=== PATIENT | female | born 1950 | race Hispanic/Latino ===

== ENCOUNTER 2025-04-02 13:35 | Emergency (ER) | payer OTHER ==
--- OUTSIDE RECORDS SUMMARY | 2025-04-02 13:41 | XMS REPORT | Continuity of Care Document ---
Author Name Unknown Address [address] [facility] [address] [place] [address] Organization [facility] [place] Address [address] [facility] [address] [place] [address] Care Team Providers Care Director Supplier Quality Name Role Phone Tim Trinidad Attending Clinician Unavailable Payers Payer Name Policy Type Policy Number Effective Date Expirati on Date Source [employer] Medicare Replace [id number] [id number] 2019 00:00:00 [facility] MEDICARE NOVITAS MB [id number] 2015 00:00:00 [facility] Problems Condition Name Condition Details Condition Category Status Onset Date Resolution Date Last Treatment Date Treating Clinician Comments Source Memory loss Memory loss Problem [facility] Type 2 diabetes mellitus with diabetic chronic kidney disease Type 2 diabetes mellitus with diabetic chronic kidney disease Problem [facility] 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 a due to type 2 diabetes mellitus Problem [facility] Chronic kidney disease stage 3B (disorder) Chronic kidney disease, stage 3b Problem [facility] Benign essential hypertensi on Benign essential hypertensi on Problem [facility] Mixed hyperlipid emia Mixed hyperlipid emia Problem [facility] Type II diabetes mellitus without complicati on Diabetes mellitus out of control Problem [facility] Uncontroll ed type 2 diabetes mellitus with hyperglyce evon Uncontroll ed type 2 diabetes mellitus with hyperglyce evon Problem [facility] Type 2 diabetes mellitus with other diabetic kidney complicati on Type 2 diabetes mellitus with other diabetic kidney complicati on Problem [facility] Subclinica l hypothyroi dism Subclinica l hypothyroi dism Problem [facility] Type 2 diabetes mellitus with hyperglyce evon Type 2 diabetes mellitus with hyperglyce evon Problem [facility] Diabetic polyneurop athy Secondary diabetes with peripheral neuropathy Problem [facility] Proteinuri a, unspecifie d type Proteinuri a, unspecifie d type Problem [facility] Patient's noncomplia nce with dietary regimen Patient's noncomplia nce with dietary regimen Problem [facility] Noncomplia nce with dietary restrictio n Noncomplia nce with dietary restrictio n Problem [facility] PUD (peptic ulcer disease) PUD (peptic ulcer disease) Problem [facility] 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 Problem [facility] Post herpetic neuralgia Post herpetic neuralgia Problem [facility] Anemia Anemia, unspecifie d type Problem [facility] Vitamin D deficiency Vitamin D deficiency Problem [facility] Social History Social Habit Start Date Stop Date Quantity Comments Source History of Tobacco Use [facility] Sex Assigned At [facility] Smoking Status Start Date Stop Date Source Never Smoker [facility] Medications Ordered Medication Name Filled Medication Name Start Date Stop Date Current Medication? Ordering Clinician Indication Dosage Frequency Signature (SIG) Comments Components Source Vitamin D (Ergocalcif salu) 50 MCG (1999) Vitamin D (Ergocalcif saul) 50 MCG (1999) 2023-06 00:00: 00 No 1{capsu le} QD Vitamin D (Ergocalci ferol) 50 MCG (1999) Gabapentin 400 MG Gabapentin 400 MG 2023-06 0-16 00:00: 00 No QD Gabapentin 400 MG Pioglitazon e HCl 45 MG Pioglitazon e HCl 45 MG No 1{table t} QD Pioglitazo ne HCl 45 MG amLODIPine Besylate 10 MG amLODIPine Besylate 10 MG No 1{table t} QD amLODIPine Besylate 10 MG Berberine Chloride Berberine Chloride No 1{table ts} BID Berberine Chloride Lisinopril 40 MG Lisinopril 40 MG No 1{table t} QD Lisinopril 40 MG glipiZIDE ER 10 MG glipiZIDE ER 10 MG No 1{table t} BID glipiZIDE ER 10 MG Pravastatin Sodium 10 MG Pravastatin Sodium 10 MG No 1{table t} QD Pravastati n Sodium 10 MG Aspirin 81 81 MG Aspirin 81 81 MG No 1{table t} QD Aspirin 81 81 MG Dorzolamide HCl 2 % Dorzolamide HCl 2 % No Dorzolamid e HCl 2 % Brimonidine Tartrate-Ti molol 0.2-0.5 % Brimonidine Tartrate-Ti molol 0.2-0.5 % No Brimonidin e Tartrate-T imolol 0.2-0.5 % hydroCHLORO thiazide 12.5 MG hydroCHLORO thiazide 12.5 MG No 1{table t_in_th e_morni ng} QD hydroCHLOR Othiazide 12.5 MG traMADol HCl 50 MG traMADol HCl 50 MG No 1{table t_as_ne eded} QD traMADol HCl 50 MG Vital Signs Vital Name Observation Time Observation Value Comments S ource height 2025-02-10 15:20:00 60 [in_i] Commo n [facility] weight 2025-02-10 15:20:00 158 [lb_av] Comm on [facility] bmi 2025-02-10 15:20:00 30.85 kg/m2 Comm on [facility] height 2025-01-05 14:15:00 60 [in_i] Commo n [facility] weight 2025-01-05 14:15:00 158.7 [lb_av] Co mmon [facility] temperature 2025-01-05 14:15:00 97.2 [degF] Com [facility] bmi 2025-01-05 14:15:00 30.99 kg/m2 Comm on [facility] oximetry 2025-01-05 14:15:00 99 % Commo n [facility] respiratory rate 2025-01-05 14:15:00 17 /min Common [facility] blood pressure systolic 2025-01-05 14:15:00 138 mm[Hg] [facility] blood pressure diastolic 2025-01-05 14:15:00 70 mm[Hg] Common [facility] height 2025-01-05 14:30:00 60 [in_i] Commo n [facility] weight 2025-01-05 14:30:00 158.7 [lb_av] Co [facility] temperature 2025-01-05 14:30:00 97.2 [degF] Com [facility] bmi 2025-01-05 14:30:00 30.99 kg/m2 Comm on [facility] oximetry 2025-01-05 14:30:00 100 % Commo n [facility] blood pressure systolic 2025-01-05 14:30:00 138 mm[Hg] Common [facility] blood pressure diastolic 2025-01-05 14:30:00 70 mm[Hg] Common [facility] height 2024-06-17 10:30:00 60 [in_i] Commo n [facility] weight 2024-06-17 10:30:00 162.2 [lb_av] Co [facility] temperature 2024-06-17 10:30:00 96.4 [degF] Com [facility] bmi 2024-06-17 10:30:00 31.67 kg/m2 Comm on [facility] oximetry 2024-06-17 10:30:00 98 % Commo n [facility] respiratory rate 2024-06-17 10:30:00 17 /min Common [facility] blood pressure systolic 2024-06-17 10:30:00 134 mm[Hg] [facility] blood pressure diastolic 2024-06-17 10:30:00 62 mm[Hg] [facility] height 2024-04-02 10:40:00 60 [in_i] Commo n [facility] weight 2024-04-02 10:40:00 150 [lb_av] Comm on [facility] temperature 2024-04-02 10:40:00 98.0 [degF] Com [facility] bmi 2024-04-02 10:40:00 29.29 kg/m2 Comm on [facility] oximetry 2024-04-02 10:40:00 99 % Commo n [facility] respiratory rate 2024-04-02 10:40:00 18 /min Common [facility] blood pressure systolic 2024-04-02 10:40:00 138 mm[Hg] [facility] blood pressure diastolic 2024-04-02 10:40:00 65 mm[Hg] Common [facility] height 2024-03-11 10:20:00 60 [in_i] Commo n [facility] weight 2024-03-11 10:20:00 146 [lb_av] Comm on [facility] temperature 2024-03-11 10:20:00 97.2 [degF] Com mon [facility] bmi 2024-03-11 10:20:00 28.51 kg/m2 Comm on [facility] oximetry 2024-03-11 10:20:00 98 % Commo n [facility] blood pressure systolic 2024-03-11 10:20:00 132 mm[Hg] Common [facility] blood pressure diastolic 2024-03-11 10:20:00 76 mm[Hg] Common [facility] height 2024-03-11 10:20:00 60 [in_i] Commo n [facility] weight 2024-03-11 10:20:00 146 [lb_av] Comm on [facility] temperature 2024-03-11 10:20:00 97.2 [degF] Com mon [facility] bmi 2024-03-11 10:20:00 28.51 kg/m2 Comm on [facility] oximetry 2024-03-11 10:20:00 98 % Commo n [facility] blood pressure systolic 2024-03-11 10:20:00 132 mm[Hg] Common [facility] blood pressure diastolic 2024-03-11 10:20:00 76 mm[Hg] Common [facility] height 2024-01-17 10:20:00 60 [in_i] Commo n [facility] weight 2024-01-17 10:20:00 152.0 [lb_av] Co mmon [facility] temperature 2024-01-17 10:20:00 97.3 [degF] Com mon [facility] bmi 2024-01-17 10:20:00 29.68 kg/m2 Comm on [facility] oximetry 2024-01-17 10:20:00 100 % Commo n [facility] respiratory rate 2024-01-17 10:20:00 17 /min Common [facility] blood pressure systolic 2024-01-17 10:20:00 133 mm[Hg] Common [facility] blood pressure diastolic 2024-01-17 10:20:00 62 mm[Hg] Common [facility] height 2023-12-07 11:20:00 60 [in_i] Commo n [facility] weight 2023-12-07 11:20:00 148.0 [lb_av] Co mmon [facility] temperature 2023-12-07 11:20:00 97.6 [degF] Com mon [facility] bmi 2023-12-07 11:20:00 28.9 kg/m2 Commo n [facility] oximetry 2023-12-07 11:20:00 98 % Commo n [facility] respiratory rate 2023-12-07 11:20:00 18 /min Common [facility] blood pressure systolic 2023-12-07 11:20:00 126 mm[Hg] Common [facility] blood pressure diastolic 2023-12-07 11:20:00 67 mm[Hg] [facility] height 2023-12-07 11:20:00 60 [in_i] Commo n [facility] weight 2023-12-07 11:20:00 148.0 [lb_av] Co mmon [facility] temperature 2023-12-07 11:20:00 97.6 [degF] Com mon [facility] bmi 2023-12-07 11:20:00 28.9 kg/m2 Commo n [facility] oximetry 2023-12-07 11:20:00 98 % Commo n [facility] respiratory rate 2023-12-07 11:20:00 18 /min Common [facility] blood pressure systolic 2023-12-07 11:20:00 126 mm[Hg] Common [facility] blood pressure diastolic 2023-12-07 11:20:00 67 mm[Hg] [facility] height 2023-09-03 10:00:00 60 [in_i] Commo n [facility] weight 2023-09-03 10:00:00 148.0 [facility]lb_av] [facility]-03 10:00:00 97.9 [degF] Com [facility] bmi 2023-09-03 10:00:00 28.9 kg/m2 Commo n [facility] oximetry 2023-09-03 10:00:00 99 % Commo n [facility] respiratory rate 2023-09-03 10:00:00 18 /min Common [facility] blood pressure systolic 2023-09-03 10:00:00 122 mm[Hg] [facility] blood pressure diastolic 2023-09-03 10:00:00 77 mm[Hg] Common [facility] height 2023-06-04 14:20:00 60 [in_i] Commo n [facility] weight 2023-06-04 14:20:00 141.6 [lb_av] Co [facility] temperature 2023-06-04 14:20:00 97.4 [degF] Com [facility] bmi 2023-06-04 14:20:00 27.65 kg/m2 Comm on [facility] oximetry 2023-06-04 14:20:00 97 % Commo n [facility] blood pressure systolic 2023-06-04 14:20:00 130 mm[Hg] [facility] blood pressure diastolic 2023-06-04 14:20:00 78 mm[Hg] Common [facility] height 2023-03-06 11:00:00 60 [in_i] Commo n [facility] weight 2023-03-06 11:00:00 144.0 [lb_av] Co mmon [facility] temperature 2023-03-06 11:00:00 97.2 [degF] Com [facility] bmi 2023-03-06 11:00:00 28.12 kg/m2 Comm on [facility] oximetry 2023-03-06 11:00:00 97 % Commo n [facility] respiratory rate 2023-03-06 11:00:00 18 /min Common [facility] blood pressure systolic 2023-03-06 11:00:00 120 mm[Hg] Common [facility] blood pressure diastolic 2023-03-06 11:00:00 59 mm[Hg] [facility] height 2022-11-30 11:00:00 60 [in_i] Commo n [facility] weight 2022-11-30 11:00:00 142.8 [lb_av] Co [facility] temperature 2022-11-30 11:00:00 97.9 [degF] Com [facility] bmi 2022-11-30 11:00:00 27.89 kg/m2 Comm on [facility] oximetry 2022-11-30 11:00:00 94 % Commo n [facility] respiratory rate 2022-11-30 11:00:00 16 /min [facility] blood pressure systolic 2022-11-30 11:00:00 130 mm[Hg] [facility] blood pressure diastolic 2022-11-30 11:00:00 71 mm[Hg] Common [facility] height 2022-11-30 11:30:00 60 [in_i] Commo n [facility] weight 2022-11-30 11:30:00 142.8 [lb_av] Co mmon [facility] temperature 2022-11-30 11:30:00 97.9 [degF] Com [facility] bmi 2022-11-30 11:30:00 27.89 kg/m2 Comm on [facility] oximetry 2022-11-30 11:30:00 96 % Commo n [facility] respiratory rate 2022-11-30 11:30:00 16 /min [facility] blood pressure systolic 2022-11-30 11:30:00 130 mm[Hg] Common [facility] blood pressure diastolic 2022-11-30 11:30:00 71 mm[Hg] [facility] height 2022-10-16 11:10:00 60 [in_i] Commo n [facility] weight 2022-10-16 11:10:00 143.9 [lb_av] Co mmon [facility] temperature 2022-10-16 11:10:00 97.7 [degF] Com mon [facility] bmi 2022-10-16 11:10:00 28.1 kg/m2 Commo n [facility] oximetry 2022-10-16 11:10:00 97 % Commo n [facility] respiratory rate 2022-10-16 11:10:00 18 /min [facility] blood pressure systolic 2022-10-16 11:10:00 137 mm[Hg] [facility] blood pressure diastolic 2022-10-16 11:10:00 65 mm[Hg] [facility] height 2022-09-14 11:10:00 60 [in_i] Commo n [facility] weight 2022-09-14 11:10:00 143.1 [lb_av] Co mmon [facility] temperature 2022-09-14 11:10:00 96.7 [degF] Com mon [facility] bmi 2022-09-14 11:10:00 27.94 kg/m2 Comm on [facility] oximetry 2022-09-14 11:10:00 95 % Commo n [facility] respiratory rate 2022-09-14 11:10:00 16 /min Common [facility] blood pressure systolic 2022-09-14 11:10:00 136 mm[Hg] Common [facility] blood pressure diastolic 2022-09-14 11:10:00 76 mm[Hg] Common [facility] height 2022-08-14 11:30:00 60 [in_i] Commo n [facility] weight 2022-08-14 11:30:00 146 [lb_av] Comm on [facility] temperature 2022-08-14 11:30:00 97.3 [degF] Com [facility] bmi 2022-08-14 11:30:00 28.51 kg/m2 Comm on [facility] oximetry 2022-08-14 11:30:00 97 % Commo n [facility] respiratory rate 2022-08-14 11:30:00 16 /min Common [facility] blood pressure systolic 2022-08-14 11:30:00 142 mm[Hg] Common [facility] blood pressure diastolic 2022-08-14 11:30:00 72 mm[Hg] Common [facility] height 2022-05-16 14:50:00 60 [in_i] Commo n [facility] weight 2022-05-16 14:50:00 145.9 [lb_av] Co mmon [facility] temperature 2022-05-16 14:50:00 97.3 [degF] Com [facility] bmi 2022-05-16 14:50:00 28.49 kg/m2 Comm on [facility] oximetry 2022-05-16 14:50:00 99 % Commo n [facility] respiratory rate 2022-05-16 14:50:00 18 /min Common [facility] blood pressure systolic 2022-05-16 14:50:00 138 mm[Hg] Common [facility] blood pressure diastolic 2022-05-16 14:50:00 64 mm[Hg] Common [facility] height 2022-02-14 15:50:00 60 [in_i] Commo n [facility] weight 2022-02-14 15:50:00 147.2 [lb_av] Co mmon [facility] temperature 2022-02-14 15:50:00 97.4 [degF] Com mon [facility] bmi 2022-02-14 15:50:00 28.74 kg/m2 Comm on [facility] oximetry 2022-02-14 15:50:00 99 % Commo n [facility] respiratory rate 2022-02-14 15:50:00 18 /min Common [facility] blood pressure systolic 2022-02-14 15:50:00 127 mm[Hg] [facility] blood pressure diastolic 2022-02-14 15:50:00 77 mm[Hg] [facility] height 2021-11-24 10:00:00 60 [in_i] Commo n [facility] weight 2021-11-24 10:00:00 142.3 [lb_av] Co [facility] temperature 2021-11-24 10:00:00 97.5 [degF] Com [facility] bmi 2021-11-24 10:00:00 27.79 kg/m2 Comm on [facility] oximetry 2021-11-24 10:00:00 97 % Commo n [facility] respiratory rate 2021-11-24 10:00:00 17 /min [facility] blood pressure systolic 2021-11-24 10:00:00 138 mm[Hg] Common [facility] blood pressure diastolic 2021-11-24 10:00:00 77 mm[Hg] [facility] height 2021-10-28 08:50:00 60 [in_i] Commo n [facility] weight 2021-10-28 08:50:00 145.4 [lb_av] Co [facility] temperature 2021-10-28 08:50:00 96.8 [degF] Com [facility] bmi 2021-10-28 08:50:00 28.39 kg/m2 Comm on [facility] oximetry 2021-10-28 08:50:00 97 % Commo n [facility] respiratory rate 2021-10-28 08:50:00 17 /min [facility] blood pressure systolic 2021-10-28 08:50:00 135 mm[Hg] [facility] blood pressure diastolic 2021-10-28 08:50:00 72 mm[Hg] [facility] height 2021-10-28 08:20:00 60 [in_i] Commo n [facility] weight 2021-10-28 08:20:00 145.4 [lb_av] Co [facility] temperature 2021-10-28 08:20:00 96.8 [degF] Com [facility] bmi 2021-10-28 08:20:00 28.39 kg/m2 Comm on [facility] oximetry 2021-10-28 08:20:00 97 % Commo n [facility] respiratory rate 2021-10-28 08:20:00 17 /min Common [facility] blood pressure systolic 2021-10-28 08:20:00 135 mm[Hg] [facility] blood pressure diastolic 2021-10-28 08:20:00 72 mm[Hg] Common [facility] height 2021-05-10 15:00:00 60 [in_i] Commo n [facility] weight 2021-05-10 15:00:00 150.4 [lb_av] Co [facility] temperature 2021-05-10 15:00:00 97.3 [degF] Com [facility] bmi 2021-05-10 15:00:00 29.37 kg/m2 Comm on [facility] oximetry 2021-05-10 15:00:00 100 % Commo n [facility] respiratory rate 2021-05-10 15:00:00 18 /min [facility] blood pressure systolic 2021-05-10 15:00:00 133 mm[Hg] [facility] blood pressure diastolic 2021-05-10 15:00:00 76 mm[Hg] [facility] Encounters Start Date/Time End Date/Time Encounter Type Admission Type Attending Clinicians Care Facility Care Department Encounter ID Source 2024-04-02 09:16:00 Outpatient [place], Tmi STLMLC ST[facility]ML[facility] [id number] [facility] 2023-12-06 09:40:00 Outpatient [place], Tim STLMLC ST[facility] [id number] [facility] 2023-10-31 15:35:00 Outpatient [place], Tim STLMLC ST[facility]MLC [id number] [facility] 2022-12-25 09:44:01 Outpatient [place], Tim STLMLC STLMLC [id number] [facility] 2022-11-20 14:22:00 Outpatient [place], Tim STLMLC STLMLC [id number] [facility] 2022-05-25 16:30:01 Outpatient Triniadd, Tim STLMLC STLMLC [id number] [facility] 2022-05-15 15:53:01 Outpatient [place]idad, Tim STLMLC STLMLC [id number] [facility] 2021-07-13 13:34:14 Outpatient [place]idad, Tim STLMLC STLMLC [id number] [facility] 2021-07-13 13:20:34 Outpatient [place], Tim STLMLC STLMLC [id number] [facility] 2021-07-13 13:19:52 Outpatient [place]idad, Tim STLMLC STLMLC [id number] [facility] 2021-07-13 12:26:48 Outpatient [place]idad, Tim STLMLC STLMLC [id number] [facility] 2021-07-13 12:25:23 Outpatient [place]idad, Tim STLMLC STLMLC [id number] [facility] 2021-07-13 11:22:54 Outpatient [place]idad, Tim STLMLC STLMLC [id number] [facility] 2021-07-13 11:22:43 Outpatient [place], Tim STLMLC STLMLC [id number] [facility] 2021-07-13 11:20:54 Outpatient [place]idad, Tim STLMLC STLMLC [id number] [facility] 2021-07-13 11:17:23 Outpatient [place]idad, Tim STLMLC STLMLC [id number] [facility] 2021-07-13 11:07:18 Outpatient [place], Tim STLMLC STLMLC [id number] [facility] 2025-02-20 00:00:00 2025-02-20 00:00:00 (TEL) STLMLC STLMLC [id number] [facility] 2025-02-20 00:00:00 2025-02-20 00:00:00 (TEL) STLMLC STLMLC [id number] [facility] 2025-02-13 00:00:00 2025-02-13 00:00:00 (TEL) STLMLC STLMLC [id number] [facility] 2025-02-10 00:00:00 2025-02-10 00:00:00 (TEL) STLMLC STLMLC [id number] [facility] 2025-02-10 00:00:00 2025-02-10 00:00:00 OFFICE VISIT ESTAB PT LEVEL 4 STLMLC STLMLC [id number] [facility] 2025-01-05 00:00:00 2025-01-05 00:00:00 OFFICE VISIT ESTAB PT LEVEL 4 STLMLC STLMLC [id number] [facility] 2025-01-05 00:00:00 2025-01-05 00:00:00 SUB ANNUAL [facility] WELLNESS VISIT STLMLC STLMLC [id number] [facility] 2024-11-27 00:00:00 2024-11-27 00:00:00 (TEL) STLMLC STLMLC [id number] [facility] 2024-06-19 00:00:00 2024-06-19 00:00:00 (TEL) STLMLC STLMLC [id number] [facility] 2024-06-17 00:00:00 2024-06-17 00:00:00 OFFICE VISIT ESTAB PT LEVEL 4 STLMLC STLMLC [id number] [facility] 2024-04-02 00:00:00 2024-04-02 00:00:00 OFFICE VISIT ESTAB PT LEVEL 3 STLMLC STLMLC [id number] [facility] 2024-04-01 00:00:00 2024-04-01 00:00:00 (TEL) STLMLC STLMLC [id number] [facility] 2024-03-11 00:00:00 2024-03-11 00:00:00 OFFICE VISIT ESTAB PT LEVEL 4 STLMLC STLMLC [id number] [facility] 2024-01-17 00:00:00 2024-01-17 00:00:00 OFFICE VISIT ESTAB PT LEVEL 3 STLMLC STLMLC [id number] [facility] 2024-01-16 00:00:00 2024-01-16 00:00:00 (TEL) STLMLC STLMLC [id number] [facility] 2023-12-07 00:00:00 2023-12-07 00:00:00 OFFICE VISIT ESTAB PT LEVEL 4 STLMLC STLMLC [id number] [facility] 2023-12-07 00:00:00 2023-12-07 00:00:00 (TEL) STLMLC STLMLC [id number] [facility] 2023-12-07 00:00:00 2023-12-07 00:00:00 SUB ANNUAL [facility] WELLNESS VISIT STLMLC STLMLC [id number] [facility] 2023-10-31 00:00:00 2023-10-31 00:00:00 (TEL) STLMLC STLMLC [id number] [facility] 2023-09-11 00:00:00 2023-09-11 00:00:00 (TEL) STLMLC STLMLC [id number] [facility] 2023-09-03 00:00:00 2023-09-03 00:00:00 OFFICE VISIT ESTAB PT LEVEL 4 STLMLC STLMLC [id number] [facility] 2023-06-04 00:00:00 2023-06-04 00:00:00 OFFICE VISIT ESTAB PT LEVEL 4 STLMLC STLMLC [id number] [facility] 2023-03-06 00:00:00 2023-03-06 00:00:00 OFFICE VISIT ESTAB PT LEVEL 4 STLMLC STLMLC [id number] [facility] 2022-11-30 00:00:00 2022-11-30 00:00:00 OFFICE VISIT ESTAB PT LEVEL 4 STLMLC STLMLC [id number] [facility] 2022-11-30 00:00:00 2022-11-30 00:00:00 SUB ANNUAL [facility] WELLNESS VISIT STLMLC STLMLC [id number] [facility] 2022-11-30 00:00:00 2022-11-30 00:00:00 (TEL) STLMLC STLMLC [id number] [facility] 2022-11-17 00:00:00 2022-11-17 00:00:00 (TEL) STLMLC STLMLC [id number] [facility] 2022-10-16 00:00:00 2022-10-16 00:00:00 OFFICE VISIT ESTAB PT LEVEL 4 STLMLC STLMLC [id number] [facility] 2022-09-14 00:00:00 2022-09-14 00:00:00 OFFICE VISIT ESTAB PT LEVEL 4 STLMLC STLMLC [id number] [facility] 2022-09-14 00:00:00 2022-09-14 00:00:00 (TEL) STLMLC STLMLC [id number] [facility] 2022-08-14 00:00:00 2022-08-14 00:00:00 OFFICE VISIT ESTAB PT LEVEL 4 STLMLC STLMLC [id number] [facility] 2022-05-16 00:00:00 2022-05-16 00:00:00 OFFICE VISIT ESTAB PT LEVEL 4 STLMLC STLMLC [id number] [facility] 2022-02-14 00:00:00 2022-02-14 00:00:00 OFFICE VISIT ESTAB PT LEVEL 4 STLMLC STLMLC [id number] [facility] 2021-11-24 00:00:00 2021-11-24 00:00:00 OFFICE VISIT ESTAB PT LEVEL 4 STLMLC STLMLC [id number] [facility] 2021-10-28 00:00:00 2021-10-28 00:00:00 OFFICE VISIT ESTAB PT LEVEL 4 STLMLC STLMLC [id number] [facility] 2021-10-28 00:00:00 2021-10-28 00:00:00 SUB ANNUAL [facility] WELLNESS VISIT STLMLC STLMLC [id number] [facility] 2021-05-10 00:00:00 2021-05-10 00:00:00 OFFICE VISIT ESTAB PT LEVEL 4 STLMLC STLMLC [id number] [facility] 2021-01-18 00:00:00 2021-01-18 00:00:00 Outpatient STLMLC STLMLC [id number] [facility] 2020-12-14 00:00:00 2020-12-14 00:00:00 Outpatient STLMLC STLMLC [id number] [facility] 2020-11-16 00:00:00 2020-11-16 00:00:00 Outpatient STLMLC STLMLC [id number] [facility] 2020-10-18 00:00:00 2020-10-18 00:00:00 Outpatient STLMLC STLMLC [id number] [facility] 2020-07-20 00:00:00 2020-07-20 00:00:00 Outpatient STLMLC STLMLC [id number] [facility] 2020-07-20 00:00:00 2020-07-20 00:00:00 Outpatient STLMLC STLMLC [id number] [facility] 2020-04-20 00:00:00 2020-04-20 00:00:00 Outpatient STLMLC STLMLC [id number] [facility] 2020-01-12 11:15:00 2020-01-12 11:15:[address] [facility] [id number] [facility] 2020-01-07 14:00:00 2020-01-07 14:00:[address] [facility] [id number] [facility] 2019-12-03 21:39:00 2019-12-03 21:39:[address] [facility] [id number] [facility] 2019-11-24 10:15:00 2019-11-24 10:15:[address] [facility] [id number] [facility] 2019-10-21 16:53:00 2019-10-21 16:53:[address] [facility] [id number] [facility] 2019-09-08 11:15:00 2019-09-08 11:15:[address] [facility] [id number] [facility] 2019-07-30 11:00:00 2019-07-30 11:00:[address] [facility] [id number] [facility] 2019-07-22 16:58:00 2019-07-22 16:58:[address] [facility] [id number] [facility] 2019-05-01 10:30:00 2019-05-01 10:30:[address] [facility] [id number] [facility] 2019-04-16 09:20:00 2019-04-16 09:20:[address] [facility] [facility] Medicine [id number] [facility] 2018-07-25 09:00:00 2018-07-25 09:00:[address] [facility] [id number] [facility] 2018-07-24 11:44:00 2018-07-24 11:44:[address] [facility] [facility] Medicine [id number] [facility] 2018-02-06 10:00:00 2018-02-06 10:00:[address] [facility] [facility] Medicine [id number] [facility] 2017-11-30 10:00:00 2017-11-30 10:00:[address] [facility] [id number] [facility] Results Test Description Test Time Test Comments Results Result Co mments Source COMPREHENSIVE METABOLIC [id number] 00:00:00* Test Item Value Reference Range Interpretation Comme nts NUCLEATED RBCS (test code = 42524-7) 0.0 /100 WBC'S See_Comment [Automated message] The system which generated this result transmitted reference range: 0.0 /100 WBC'S. The reference range was not used to interpret this result as normal/abnormal. ABSOLUTE EOSINOPHILS (test code = 39498-8) 0.37 K/UL See_Comment [Automated message] The system which generated this result transmitted reference range: 0.00-0.50 K/UL. The reference range was not used to interpret this result as normal/abnormal. ABSOLUTE LYMPHOCYTES (test code = 68190-0) 1.02 K/UL See_Comment [Automated message] The system which generated this result transmitted reference range: 1.00-4.00 K/UL. The reference range was not used to interpret this result as normal/abnormal. ABSOLUTE MONOCYTES (test code = 36764-0) 0.45 K/UL See_Comment [Automated message] The system which generated this result transmitted reference range: 0.20-1.00 K/UL. The reference range was not used to interpret this result as normal/abnormal. ABSOLUTE NEUTROPHILS (test code = 19329-4) 3.70 K/UL See_Comment [Automated message] The system which generated this result transmitted reference range: 1.50-7.50 K/UL. The reference range was not used to interpret this result as normal/abnormal. BASOPHILS (test code = 59796-3) 0.7 % EOSINOPHILS (test code = 00488-5) 6.6 % HEMATOCRIT (test code = 25980-1) 25.0 % See_Comment L [Automated messa ge] The system which generated this result transmitted reference range: 34.0-45.0 %. The reference range was not used to interpret this result as normal/abnormal. HEMOGLOBIN (test code = 718-7) 8.3 G/DL See_Comment L [Automated messa ge] The system which generated this result transmitted reference range: 11.5-15.5 G/DL. The reference range was not used to interpret this result as normal/abnormal. LYMPHOCYTES (test code = 21988-1) 18.1 % MCH (test code = 95337-6) 33.1 PG See_Comment H [Automated messa ge] The system which generated this result transmitted reference range: 25.0-33.0 PG. The reference range was not used to interpret this result as normal/abnormal. MCHC (test code = 10286-8) 33.2 G/DL See_Comment [Automated messa ge] The system which generated this result transmitted reference range: 31.0-36.0 G/DL. The reference range was not used to interpret this result as normal/abnormal. MCV (test code = 30864-7) 99.6 fL See_Comment H [Automated messa ge] The system which generated this result transmitted reference range: 80.0-99.0 fL. The reference range was not used to interpret this result as normal/abnormal. MONOCYTES (test code = 47265-1) 8.0 % NEUTROPHILS (test code = 50307-6) 65.9 % PLATELET COUNT (test code = 00757-9) 310 K/UL See_Comment [Automated messa ge] The system which generated this result transmitted reference range: 130-400 K/UL. The reference range was not used to interpret this result as normal/abnormal. RBC (test code = 69759-4) 2.51 M/UL See_Comment L [Automated messa ge] The system which generated this result transmitted reference range: 3.80-5.40 M/UL. The reference range was not used to interpret this result as normal/abnormal. RDW (test code = 45094-8) 17.2 % See_Comment H [Automated messa ge] The system which generated this result transmitted reference range: 11.5-15.0 %. The reference range was not used to interpret this result as normal/abnormal. WBC (test code = 33711-4) 5.6 K/UL See_Comment [Automated messa ge] The system which generated this result transmitted reference range: 3.5-11.0 K/UL. The reference range was not used to interpret this result as normal/abnormal. HEMOGLOBIN A1c (test code = 4548-4) 7.3 % See_Comment H [Automated messa ge] The system which generated this result transmitted reference range: 4.2-5.6 %. The reference range was not used to interpret this result as normal/abnormal. FREE T4 (THYROXINE) (test code = 3024-7) 1.14 NG/DL See_Comment [Automated message] The system which generated this result transmitted reference range: 0.80-1.90 NG/DL. The reference range was not used to interpret this result as normal/abnormal. TSH REFLEX TO FREE T4 (test code = 62924-1) 3.030 UIU/ML See_Comment [Automated message] The system which generated this result transmitted reference range: 0.400-4.100 UIU/ML. The reference range was not used to interpret this result as normal/abnormal. CALC LDL CHOL (test code = 63420-9) 71 MG/DL See_Comment [Automated messa ge] The system which generated this result transmitted reference range: <100 MG/DL. The reference range was not used to interpret this result as normal/abnormal. CHOLESTEROL (test code = 2093-3) 125 MG/DL See_Comment [Automated messa ge] The system which generated this result transmitted reference range: <200 MG/DL. The reference range was not used to interpret this result as normal/abnormal. HDL CHOLESTEROL (test code = 2085-9) 28 MG/DL See_Comment L [Automated messa ge] The system which generated this result transmitted reference range: >39 MG/DL. The reference range was not used to interpret this result as normal/abnormal. RISK RATIO LDL/HDL (test code = 58898-6) 2.54 RATIO See_Comment [Automated message] The system which generated this result transmitted reference range: <3.22 RATIO. The reference range was not used to interpret this result as normal/abnormal. TRIGLYCERIDES (test code = 2571-8) 192 MG/DL See_Comment H [Automated messa ge] The system which generated this result transmitted reference range: <150 MG/DL. The reference range was not used to interpret this result as normal/abnormal. ALBUMIN, URINE, RANDOM (test code = 98478-9) 265.6 MG/DL NOT ESTAB MG/DL CALC ALBUMIN/CREAT, RND (test code = 79747-0) 2069 MG/G See_Comment H [Automated messa ge] The system which generated this result transmitted reference range: <30 MG/G. The reference range was not used to interpret this result as normal/abnormal. CREATININE, URINE, CONC. (test code = 2161-8) 128.4 MG/DL NOT ESTAB MG/DL ALBUMIN (test code = 1751-7) 3.7 G/DL See_Comment [Automated messa ge] The system which generated this result transmitted reference range: 3.5-5.2 G/DL. The reference range was not used to interpret this result as normal/abnormal. ALKALINE PHOSPHATASE (test code = 6768-6) 69 U/L See_Comment [Automated message] The system which generated this result transmitted reference range: 40-142 U/L. The reference range was not used to interpret this result as normal/abnormal. BILIRUBIN, TOTAL (test code = 1975-2) <0.2 MG/DL See_Comment [Automated messa ge] The system which generated this result transmitted reference range: <=1.2 MG/DL. The reference range was not used to interpret this result as normal/abnormal. BUN (test code = 3094-0) 25 MG/DL See_Comment H [Automated messa ge] The system which generated this result transmitted reference range: 8-23 MG/DL. The reference range was not used to interpret this result as normal/abnormal. CALCIUM (test code = 23367-8) 9.4 MG/DL See_Comment [Automated messa ge] The system which generated this result transmitted reference range: 8.5-10.5 MG/DL. The reference range was not used to interpret this result as normal/abnormal. CALC A/G RATIO (test code = 1759-0) 1.2 RATIO See_Comment [Automated messa ge] The system which generated this result transmitted reference range: 1.0-2.6 RATIO. The reference range was not used to interpret this result as normal/abnormal. CALC BUN/CREAT (test code = 3097-3) 18 RATIO See_Comment [Automated messa ge] The system which generated this result transmitted reference range: 6-28 RATIO. The reference range was not used to interpret this result as normal/abnormal. CALC GLOBULIN (test code = 57226-7) 3.0 G/DL See_Comment [Automated messa ge] The system which generated this result transmitted reference range: 1.9-3.7 G/DL. The reference range was not used to interpret this result as normal/abnormal. CARBON DIOXIDE (test code = 1963-8) 22 MEQ/L See_Comment [Automated messa ge] The system which generated this result transmitted reference range: 19-31 MEQ/L. The reference range was not used to interpret this result as normal/abnormal. CHLORIDE (test code = 2075-0) 109 MEQ/L See_Comment H [Automated messa ge] The system which generated this result transmitted reference range: 95-107 MEQ/L. The reference range was not used to interpret this result as normal/abnormal. CREATININE (test code = 2160-0) 1.40 MG/DL See_Comment H [Automated messa ge] The system which generated this result transmitted reference range: 0.60-1.30 MG/DL. The reference range was not used to interpret this result as normal/abnormal. eGFR (2020 CKD-EPI) (test code = 45835-6) 40 ML/MIN/1.73 See_Comment L [Automated message] The system which generated this result transmitted reference range: >60 ML/MIN/1.73. The reference range was not used to interpret this result as normal/abnormal. GLUCOSE (test code = 1558-6) 182 MG/DL See_Comment H [Automated messa ge] The system which generated this result transmitted reference range: 70-99 MG/DL. The reference range was not used to interpret this result as normal/abnormal. POTASSIUM (test code = 2823-3) 5.0 MEQ/L See_Comment [Automated messa ge] The system which generated this result transmitted reference range: 3.5-5.4 MEQ/L. The reference range was not used to interpret this result as normal/abnormal. PROTEIN, TOTAL (test code = 2885-2) 6.7 G/DL See_Comment [Automated messa ge] The system which generated this result transmitted reference range: 6.1-8.3 G/DL. The reference range was not used to interpret this result as normal/abnormal. AST (test code = 1920-8) 17 U/L See_Comment [Automated messa ge] The system which generated this result transmitted reference range: 9-40 U/L. The reference range was not used to interpret this result as normal/abnormal. ALT (test code = 1742-6) 14 U/L See_Comment [Automated messa ge] The system which generated this result transmitted reference range: 5-40 U/L. The reference range was not used to interpret this result as normal/abnormal. SODIUM (test code = 2951-2) 140 MEQ/L See_Comment [Automated messa ge] The system which generated this result transmitted reference range: 133-146 MEQ/L. The reference range was not used to interpret this result as normal/abnormal. CBC W/AUTO [id number] 00:00:00* Test Item Value Reference Range Interpretation Comme nts NUCLEATED RBCS (test code = 05906-1) 0.0 /100 WBC'S See_Comment [Automated messa ge] The system which generated this result transmitted reference range: 0.0 /100 WBC'S. The reference range was not used to interpret this result as normal/abnormal. ABSOLUTE EOSINOPHILS (test code = 26234-6) 0.17 K/UL See_Comment [Automated messa ge] The system which generated this result transmitted reference range: 0.00-0.50 K/UL. The reference range was not used to interpret this result as normal/abnormal. ABSOLUTE LYMPHOCYTES (test code = 46914-1) 1.30 K/UL See_Comment [Automated messa ge] The system which generated this result transmitted reference range: 1.00-4.00 K/UL. The reference range was not used to interpret this result as normal/abnormal. ABSOLUTE MONOCYTES (test code = 22679-1) 0.40 K/UL See_Comment [Automated messa ge] The system which generated this result transmitted reference range: 0.20-1.00 K/UL. The reference range was not used to interpret this result as normal/abnormal. ABSOLUTE NEUTROPHILS (test code = 68294-6) 2.28 K/UL See_Comment [Automated messa ge] The system which generated this result transmitted reference range: 1.50-7.50 K/UL. The reference range was not used to interpret this result as normal/abnormal. BASOPHILS (test code = 26451-1) 1.0 % EOSINOPHILS (test code = 16322-5) 4.0 % HEMATOCRIT (test code = 50300-7) 29.7 % See_Comment L [Automated messa ge] The system which generated this result transmitted reference range: 34.0-45.0 %. The reference range was not used to interpret this result as normal/abnormal. HEMOGLOBIN (test code = 718-7) 9.7 G/DL See_Comment L [Automated messa ge] The system which generated this result transmitted reference range: 11.5-15.5 G/DL. The reference range was not used to interpret this result as normal/abnormal. LYMPHOCYTES (test code = 88826-9) 30.9 % MCH (test code = 37217-6) 29.3 PG See_Comment [Automated messa ge] The system which generated this result transmitted reference range: 25.0-33.0 PG. The reference range was not used to interpret this result as normal/abnormal. MCHC (test code = 27016-3) 32.7 G/DL See_Comment [Automated messa ge] The system which generated this result transmitted reference range: 31.0-36.0 G/DL. The reference range was not used to interpret this result as normal/abnormal. MCV (test code = 69694-3) 89.7 fL See_Comment [Automated messa ge] The system which generated this result transmitted reference range: 80.0-99.0 fL. The reference range was not used to interpret this result as normal/abnormal. MONOCYTES (test code = 01900-5) 9.5 % NEUTROPHILS (test code = 45360-1) 54.1 % PLATELET COUNT (test code = 20021-4) 263 K/UL See_Comment [Automated messa ge] The system which generated this result transmitted reference range: 130-400 K/UL. The reference range was not used to interpret this result as normal/abnormal. RBC (test code = 51859-7) 3.31 M/UL See_Comment L [Automated messa ge] The system which generated this result transmitted reference range: 3.80-5.40 M/UL. The reference range was not used to interpret this result as normal/abnormal. RDW (test code = 81822-4) 14.2 % See_Comment [Automated messa ge] The system which generated this result transmitted reference range: 11.5-15.0 %. The reference range was not used to interpret this result as normal/abnormal. WBC (test code = 70702-6) 4.2 K/UL See_Comment [Automated messa ge] The system which generated this result transmitted reference range: 3.5-11.0 K/UL. The reference range was not used to interpret this result as normal/abnormal. CBC W/AUTO [id number] 00:00:00* Test Item Value Reference Range Interpretation Comme nts NUCLEATED RBCS (test code = 31747-0) 0.0 /100 WBC'S See_Comment [Automated messa ge] The system which generated this result transmitted reference range: 0.0 /100 WBC'S. The reference range was not used to interpret this result as normal/abnormal. ABSOLUTE EOSINOPHILS (test code = 10961-8) 0.32 K/UL See_Comment [Automated messa ge] The system which generated this result transmitted reference range: 0.00-0.50 K/UL. The reference range was not used to interpret this result as normal/abnormal. ABSOLUTE LYMPHOCYTES (test code = 62665-9) 1.55 K/UL See_Comment [Automated messa ge] The system which generated this result transmitted reference range: 1.00-4.00 K/UL. The reference range was not used to interpret this result as normal/abnormal. ABSOLUTE MONOCYTES (test code = 56070-2) 0.57 K/UL See_Comment [Automated messa ge] The system which generated this result transmitted reference range: 0.20-1.00 K/UL. The reference range was not used to interpret this result as normal/abnormal. ABSOLUTE NEUTROPHILS (test code = 21102-2) 2.96 K/UL See_Comment [Automated messa ge] The system which generated this result transmitted reference range: 1.50-7.50 K/UL. The reference range was not used to interpret this result as normal/abnormal. BASOPHILS (test code = 35520-0) 1.1 % EOSINOPHILS (test code = 18773-2) 5.9 % HEMATOCRIT (test code = 93301-0) 28.4 % See_Comment L [Automated messa ge] The system which generated this result transmitted reference range: 34.0-45.0 %. The reference range was not used to interpret this result as normal/abnormal. HEMOGLOBIN (test code = 718-7) 9.3 G/DL See_Comment L [Automated messa ge] The system which generated this result transmitted reference range: 11.5-15.5 G/DL. The reference range was not used to interpret this result as normal/abnormal. LYMPHOCYTES (test code = 50449-9) 28.3 % MCH (test code = 60557-2) 29.5 PG See_Comment [Automated messa ge] The system which generated this result transmitted reference range: 25.0-33.0 PG. The reference range was not used to interpret this result as normal/abnormal. MCHC (test code = 27847-4) 32.7 G/DL See_Comment [Automated messa ge] The system which generated this result transmitted reference range: 31.0-36.0 G/DL. The reference range was not used to interpret this result as normal/abnormal. MCV (test code = 90879-0) 90.2 fL See_Comment [Automated messa ge] The system which generated this result transmitted reference range: 80.0-99.0 fL. The reference range was not used to interpret this result as normal/abnormal. MONOCYTES (test code = 40065-7) 10.4 % NEUTROPHILS (test code = 75378-4) 54.1 % PLATELET COUNT (test code = 77908-1) 237 K/UL See_Comment [Automated messa ge] The system which generated this result transmitted reference range: 130-400 K/UL. The reference range was not used to interpret this result as normal/abnormal. RBC (test code = 03789-5) 3.15 M/UL See_Comment L [Automated messa ge] The system which generated this result transmitted reference range: 3.80-5.40 M/UL. The reference range was not used to interpret this result as normal/abnormal. RDW (test code = 16488-2) 13.0 % See_Comment [Automated messa ge] The system which generated this result transmitted reference range: 11.5-15.0 %. The reference range was not used to interpret this result as normal/abnormal. WBC (test code = 00281-4) 5.5 K/UL See_Comment [Automated messa ge] The system which generated this result transmitted reference range: 3.5-11.0 K/UL. The reference range was not used to interpret this result as normal/abnormal. CBC W/AUTO [id number] 00:00:00* Test Item Value Reference Range Interpretation Comme nts NUCLEATED RBCS (test code = 05333-3) 0.0 /100 WBC'S See_Comment [Automated messa ge] The system which generated this result transmitted reference range: 0.0 /100 WBC'S. The reference range was not used to interpret this result as normal/abnormal. ABSOLUTE EOSINOPHILS (test code = 67040-4) 0.21 K/UL See_Comment [Automated messa ge] The system which generated this result transmitted reference range: 0.00-0.50 K/UL. The reference range was not used to interpret this result as normal/abnormal. ABSOLUTE LYMPHOCYTES (test code = 20679-4) 1.38 K/UL See_Comment [Automated messa ge] The system which generated this result transmitted reference range: 1.00-4.00 K/UL. The reference range was not used to interpret this result as normal/abnormal. ABSOLUTE MONOCYTES (test code = 24221-2) 0.54 K/UL See_Comment [Automated messa ge] The system which generated this result transmitted reference range: 0.20-1.00 K/UL. The reference range was not used to interpret this result as normal/abnormal. ABSOLUTE NEUTROPHILS (test code = 80070-2) 2.35 K/UL See_Comment [Automated messa ge] The system which generated this result transmitted reference range: 1.50-7.50 K/UL. The reference range was not used to interpret this result as normal/abnormal. BASOPHILS (test code = 34664-9) 0.7 % EOSINOPHILS (test code = 01048-4) 4.6 % HEMATOCRIT (test code = 10215-3) 30.7 % See_Comment L [Automated messa ge] The system which generated this result transmitted reference range: 34.0-45.0 %. The reference range was not used to interpret this result as normal/abnormal. HEMOGLOBIN (test code = 718-7) 10.1 G/DL See_Comment L [Automated messa ge] The system which generated this result transmitted reference range: 11.5-15.5 G/DL. The reference range was not used to interpret this result as normal/abnormal. LYMPHOCYTES (test code = 31155-0) 30.5 % MCH (test code = 26429-1) 28.9 PG See_Comment [Automated messa ge] The system which generated this result transmitted reference range: 25.0-33.0 PG. The reference range was not used to interpret this result as normal/abnormal. MCHC (test code = 42442-9) 32.9 G/DL See_Comment [Automated messa ge] The system which generated this result transmitted reference range: 31.0-36.0 G/DL. The reference range was not used to interpret this result as normal/abnormal. MCV (test code = 38233-9) 88.0 fL See_Comment [Automated messa ge] The system which generated this result transmitted reference range: 80.0-99.0 fL. The reference range was not used to interpret this result as normal/abnormal. MONOCYTES (test code = 32957-9) 11.9 % NEUTROPHILS (test code = 91511-7) 51.9 % PLATELET COUNT (test code = 90476-5) 282 K/UL See_Comment [Automated [employer]] The system which generated this result transmitted reference range: 130-400 K/UL. The reference range was not used to interpret this result as normal/abnormal. RBC (test code = 48316-7) 3.49 M/UL See_Comment L [Automated [employer]] The system which generated this result transmitted reference range: 3.80-5.40 M/UL. The reference range was not used to interpret this result as normal/abnormal. RDW (test code = 84420-0) 14.4 % See_Comment [Automated [employer]] The system which generated this result transmitted reference range: 11.5-15.0 %. The reference range was not used to interpret this result as normal/abnormal. WBC (test code = 46191-1) 4.5 K/UL See_Comment [Automated [employer]] The system which generated this result transmitted reference range: 3.5-11.0 K/UL. The reference range was not used to interpret this result as normal/abnormal. HEMOGLOBIN [id number] 00:00:00* Test Item Value Reference Range Interpretation Comme nts A1C (test code = 4548-4) 8.6
[2025-04-02] MEDS ORDERED: NA CHLORIDE 0.9% 500 ML ONE (14:12)
[2025-04-02] MEDS ORDERED: PANTOPRAZOLE 40 MG INJ ONE ×2 (14:12→15:05)
[2025-04-02 14:15] LABS: Absolute Lymphocytes (CBC) 0.8 K/uL (0.7-4.9); Hematocrit 21.4 % (36.0-45.0); Hemoglobin 7.0 g/dL (12.0-15.0); MCH 28.7 pg (27.0-35.0); MCHC 32.6 g/dL (32.0-36.0); MCV 88.2 fL (80-100); MPV 8.4 fL (7.6-11.3); Nucleated RBC Absolute Count 0.0 (0-0); Nucleated Red Blood Cells % 0.1 % (0-0); RBC Red Blood Cell Count 2.43 M/uL (3.86-4.86); White Blood Count 4.10 thou/uL (4.3-10.9)
[2025-04-02 14:24] LABS: PT Prothrombin Time 14.1 SECONDS (10-13.0); Protime INR 1.26
[2025-04-02 14:38] LABS: AST/SGOT 12 U/L (15-37); Albumin 3.1 g/dL (3.4-5.0); Albumin/Globulin Ratio 0.7 (1.1-1.8); Alkaline Phosphatase 71 U/L (45-117); Anion Gap 10.9 mEq/L (5.0-15.0); BUN Blood Urea Nitrogen 30 mg/dL (7-18); Globulin 4.3 g/dL (2.3-3.5); Glucose Level 238 mg/dL (74-106); Lipase 65 U/L (13-75); Magnesium 2.0 mg/dL (1.6-2.4); NT PRO-BNP 883 pg/mL (<125); Potassium 4.9 mEq/L (3.5-5.1); Troponin High Sensitivity 8.9 pg/mL (<58.9)
--- NOTE | 2025-04-02 14:49 | RAD REPORT ---
EXAMINATION: ONE VIEW CHEST XR CLINICAL INDICATION: COUGH TECHNIQUE: Frontal chest projection is submitted. Examination is limited by patient positioning and t echnique. COMPARISON: No prior exam. FINDINGS: The lungs are well inflated and clear. The heart is upper limit of normal in size. No displaced fract ures identified. Aortic atherosclerosis. IMPRESSION: No acute intrathoracic abnormalities.
[2025-04-02 14:57] LABS: ALT/SGPT < 14 U/L (13-56); Bilirubin Indirect, Calculated 0.0 mg/dL (0.2-0.8)
[2025-04-02 15:24] LABS: Percent Reticulocyte Count 1.2 % (0.4-2.05); RBC Red Blood Cell Count 2.26 M/uL (3.86-4.86)
[2025-04-02] MEDS ORDERED: PANTOPRAZOLE INJ 80 MG in NA CHLORIDE 0.9% 250 ML IV SCH ×2 (16:00→16:15)
[2025-04-02 16:08] LABS: Ferritin 11.5 ng/mL (8-252); Iron 23.0 ug/dL (50-170); Transferrin 251.0 mg/dL (200-360)
--- NOTE | 2025-04-02 16:09 | EDPHYS ---
Physician Documentation [facility] Name: Jaquelin Kohli Age: 74 yrs Sex: Female : 1950 Arrival Date: 04/02/2025 Time: 13:35 Bed 13 Private MD: ED Physician Saeed Abdul HPI: 04/02 14:58 This 74 yrs old Female presents to ER via Ambulatory with complaints of manuel Abnormal Lab Results - low hemoglobin. 14:58 weak, low hgb. Onset: The symptoms/episode began/occurred at an unknown time. Severity manuel of symptoms: At their worst the symptoms were mild in the emergency department the symptoms are unchanged. The patient has not experienced similar symptoms in the past. Historical: - Allergies: 13:47 No Known Allergies; ll1 - PMHx: 13:41 diabetes mellitus; Hypertensive disorder; ll1 - PSHx: 13:41 Cholecystectomy; ll1 13:47 broken L femur, R shoulder broken; ll1 - Immunization history:: Adult Immunizations up to date. - Infectious Disease History:: Denies. - Social history:: Smoking status: Patient denies any tobacco usage or history of. ROS: 14:59 Constitutional: Negative for fever, chills, and weight loss, Eyes: Negative for injury, manuel pain, redness, and discharge, ENT: Negative for injury, pain, and discharge, Neck: Negative for injury, pain, and swelling, Cardiovascular: Negative for chest pain, palpitations, and edema, Respiratory: Negative for shortness of breath, cough, wheezing, and pleuritic chest pain, Abdomen/GI: Negative for abdominal pain, nausea, vomiting, diarrhea, and constipation, Back: Negative for injury and pain, : Negative for injury, bleeding, discharge, and swelling, MS/Extremity: Negative for injury and deformity, Skin: Negative for injury, rash, and discoloration, Psych: Negative for depression, anxiety, suicide ideation, homicidal ideation, and hallucinations, Allergy/Immunology: Negative for hives, rash, and allergies, Endocrine: Negative for neck swelling, polydipsia, polyuria, polyphagia, and marked weight changes, Hematologic/Lymphatic: Negative for swollen nodes, abnormal bleeding, and unusual bruising, 14:59 Skin: Positive for pallor, 14:59 Neuro: Positive for dizziness, weakness, Exam: 14:59 Constitutional: This is a well developed, well nourished patient who is awake, alert, manuel and in no acute distress. Head/Face: Normocephalic, atraumatic. Eyes: Pupils equal round and reactive to light, extra-ocular motions intact. Lids and lashes normal. Conjunctiva and sclera are non-icteric and not injected. Cornea within normal limits. Periorbital areas with no swelling, redness, or edema. ENT: Nares patent. No nasal discharge, no septal abnormalities noted. Tympanic membranes are normal and external auditory canals are clear. Oropharynx with no redness, swelling, or masses, exudates, or evidence of obstruction, uvula midline. Mucous membranes moist. Neck: Trachea midline, no thyromegaly or masses palpated, and no cervical lymphadenopathy. Supple, full range of motion without nuchal rigidity, or vertebral point tenderness. No Meningismus. Chest/axilla: Normal chest wall appearance and motion. Nontender with no deformity. No lesions are appreciated. Cardiovascular: Regular rate and rhythm with a normal S1 and S2. No gallops, murmurs, or rubs. Normal PMI, no JVD. No pulse deficits. Respiratory: Lungs have equal breath sounds bilaterally, clear to auscultation and percussion. No rales, rhonchi or wheezes noted. No increased work of breathing, no retractions or nasal flaring. Abdomen/GI: Soft, non-tender, with normal bowel sounds. No distension or tympany. No guarding or rebound. No evidence of tenderness throughout. Back: No spinal tenderness. No costovertebral tenderness. Full range of motion. Female : Normal external genitalia. MS/ Extremity: Pulses equal, no cyanosis. Neurovascular intact. Full, normal range of motion., bilateral aka Neuro: Awake and alert, GCS 15, oriented to person, place, time, and situation. Cranial nerves II-XII grossly intact. Motor strength 5/5 in all extremities. Sensory grossly intact. Cerebellar exam normal. Normal gait. Psych: Awake, alert, with orientation to person, place and time. Behavior, mood, and affect are within normal limits. 14:59 ECG was reviewed by the Attending Physician. 14:59 Skin: Appearance: Color: pale, abscess, not appreciated, cellulitis, is not appreciated, induration, is not appreciated, 14:59 Neuro: Orientation: is normal, appropriate for stated age, no acute changes, Mentation: is normal, appropriate for stated age, no acute changes, Memory: is normal, appropriate for stated age, no acute changes, Cranial nerves: grossly normal, is grossly normal based on the patient's age, no acute changes, Gait: is steady, at a normal pace, seizure activity, is not displayed by the patient, 15:09 Abdomen/GI: Inspection: abdomen appears normal, Bowel sounds: normal, Palpation: manuel abdomen is soft and non-tender, in all quadrants, Rectal exam: is unremarkable, rectal tone normal, Stool: normal, brown, hemorrhoid(s), are not appreciated, mass, is not appreciated, swelling, is not appreciated, tenderness, is not appreciated, the exam is chaperoned by a family member, Liver: no appreciated palpable abnormalities, Hernia: not appreciated, Vital Signs: 13:48 BP 199 / 70; Pulse 87; Resp 18; Temp 98.3; Pulse Ox 100% on R/A; Weight 65.77 kg; ll1 Height 5 ft. 0 in. ; Pain 2/10; 19:28 BP 204 / 72; Pulse 73; Resp 19; Temp 97.5(O); Pulse Ox 100% ; tb4 19:55 BP 204 / 76; Pulse 72; Resp 19; Temp 97.5(O); Pulse Ox 100% on R/A; Pain 4/10; tb4 20:00 BP 199 / 82; Pulse 77; Resp 21; Temp 97.5(O); Pulse Ox 100% on R/A; tb4 20:05 BP 199 / 82; Pulse 73; Resp 17; Temp 97.4; Pulse Ox 100% on R/A; tb4 20:10 BP 197 / 68; Pulse 75; Resp 18; Pulse Ox 100% on R/A; tb4 21:00 BP 181 / 58; Pulse 73; Resp 20; Temp 97.5(O); Pulse Ox 100% on R/A; tb4 22:00 BP 176 / 57; Pulse 73; Resp 20; Temp 97.3(O); Pulse Ox 100% on R/A; tb4 22:30 BP 174 / 53; Pulse 69; Resp 18; Temp 97.4(O); Pulse Ox 100% on R/A; Pain 0/10; tb4 23:06 BP 163 / 58; Pulse 70; Resp 19; Temp 97.5(O); Pulse Ox 100% on R/A; tb4 23:30 BP 183 / 56; Pulse 70; Resp 20; Temp 97.4(O); Pulse Ox 100% ; tb4 04/03 00:00 BP 176 / 57; Pulse 72; Resp 18; Temp 97.4(O); Pulse Ox 100% ; Pain 0/10; tb4 04/02 13:48 Body Mass Index 28.32 (65.77 kg, 152.4 cm) ll1 04/02 13:48 Pain Scale: Adult ll1 19:55 Pain Scale: Adult tb4 22:30 Pain Scale: Adult tb4 04/03 00:00 Pain Scale: Adult tb4 MDM: 04/02 13:39 Medical Screening Exam initiated manuel 15:01 Differential Diagnosis altered mental status, sepsis, flu. Data reviewed: vital signs, [facility] nurses notes, lab test result(s), EKG, radiologic studies, plain films. Consideration of Admission/Observation Escalation of care including admission/observation considered. I considered the following discharge prescriptions or medication management in the emergency department Medications were administered in the Emergency Department. See MAR. Independent interpretation of the following test(s) in the Emergency Department EKG: See my EKG interpretation above. Test considered but Not performed: CT: no ct angio ab/pel. Care significantly affected by the following chronic conditions: Diabetes, Hypertension, Obesity. 04/02 13:42 Order name: Basic Metabolic Panel; Complete Time: 14:58 [facility] 04/02 13:42 Order name: CBC with Diff; Complete Time: 14:20 [facility] 04/02 13:42 Order name: LFT's; Complete Time: 14:58 [facility] 04/02 13:42 Order name: Magnesium; Complete Time: 14:58 [facility] 04/02 13:42 Order name: NT PRO-BNP; Complete Time: 14:58 [facility] 04/02 13:42 Order name: PT-INR; Complete Time: 14:35 [facility] 04/02 13:42 Order name: Troponin HS; Complete Time: 14:58 [facility] 04/02 13:42 Order name: Lipase; Complete Time: 14:58 [facility] 04/02 13:42 Order name: UA Rfx Hernandez Cult if indicated [facility] 04/02 13:42 Order name: Type And Screen [facility] 04/02 14:27 Order name: LAB Add On sp 04/02 14:31 Order name: Packed RBC Leukored [facility] 04/02 14:37 Order name: Retic Count; Complete Time: 16:08 [facility] 04/02 14:37 Order name: B12 [facility] 04/02 14:37 Order name: TIBC [facility] 04/02 14:37 Order name: Iron Level [facility] 04/02 15:33 Order name: ABO/RH no charge; Complete Time: 16:08 [facility] 04/02 13:42 Order name: XRAY Chest (1 view); Complete Time: 14:58 [facility] 04/02 13:42 Order name: EKG; Complete Time: 13:43 [facility] 04/02 13:42 Order name: Cardiac monitoring; Complete Time: 14:27 [facility] 04/02 13:42 Order name: EKG - Nurse/Tech; Complete Time: 14:27 [facility] 04/02 13:42 Order name: IV Saline Lock; Complete Time: 14:08 [facility] 04/02 13:42 Order name: Labs collected and sent; Complete Time: 14:08 [facility] 04/02 13:42 Order name: O2 Per Protocol; Complete Time: 14:08 [facility] 04/02 13:42 Order name: O2 Sat Monitoring; Complete Time: 14:08 [facility] 04/02 14:22 Order name: Transfuse; Complete Time: 16:57 [facility] EC:59 Rate is 70 beats/min. Rhythm is regular. QRS [place] is Normal. [place] interval is normal. QRS manuel interval is normal. QT interval is normal. No Q waves. T waves are Normal. No ST changes noted. Clinical impression: NSR w/ Non-specific ST/T Changes and No evidence of ischemia. Interpreted by me. Reviewed by me. Administered Medications: 14:18 Drug: NS 0.9% IV 500 ml 500 ml IV at 1 bolus once; to be given as a bolus over 30 cc6 minutes Volume: 500 ml; Route: IV; Rate: 1 bolus; Site: left antecubital; 14:18 Drug: Pantoprazole IVP 40 mg IVP once Route: IVP; Site: left antecubital; cc6 14:32 Drug: Pantoprazole IVP 40 mg IVP once Route: IVP; Site: left antecubital; cc6 20:08 Drug: Lisinopril PO 20 mg PO once Route: PO; tb4 21:32 Follow up: Response: No adverse reaction tb4 21:32 Drug: Labetalol IV 10 mg IV at bolus once over 2 mins; For SBP greater than 140. Hold tb4 for HR less than 60, notify provider. Route: IV; Rate: bolus; Infused Over: 2 mins; Site: left antecubital; 22:17 Follow up: Response: No adverse reaction; Blood pressure is lowered; IV Status: tb4 Completed infusion Disposition Summary: 04/02/25 16:09 Discharge Ordered Notes: Location: Home manuel Problem: new manuel Symptoms: have improved manuel Condition: Stable manuel Diagnosis - Anemia, unspecified manuel - Chronic kidney disease, unspecified manuel - Anemia in chronic kidney disease manuel Followup: manuel - With: Private Physician - When: 2 - 3 days - Reason: Recheck today's complaints, Continuance of care, Re-evaluation by your physician Followup: manuel - With: Arelis Delgado MD - When: 2 - 3 days - Reason: Recheck today's complaints, Re-evaluation by your physician Discharge Instructions: - Discharge Summary Sheet manuel - Iron Deficiency Anemia, Adult manuel - Anemia manuel - Food Basics for Chronic Kidney Disease manuel - Chronic Kidney Disease, Adult, [id number] manuel - Chronic Kidney Disease, Adult manuel - Iron Deficiency Anemia, Adult, [id number] manuel - Preventing Iron Deficiency Anemia, Adult [facility] Forms: - Medication Reconciliation Form manuel - Antibiotic Education manuel - Prescription Opioid Use manuel - Patient Portal Instructions [facility] - Leadership Thank You Letter [facility] Prescriptions: - Ferrous Sulfate 325 mg (65 mg Iron) Oral tablet - take 1 tablet ORAL route every 12 hours; 60 tablet; Refills: 0, Product manuel Selection Permitted - Protonix 40 mg Oral Tablet - take 1 tablet ORAL route once daily; 30 tablet; Refills: 0, Product Selection manuel Permitted Signatures: Dispatcher [employer] EDMS Saeed Abdul MD MD cha Lewis, Lynsay RN RN ll1 Dorene Schuler RN RN cc6 Teresita Francois RN RN tb4 Jason Costa DO DO tt7 Corrections: (The following items were deleted from the chart) 14:30 14:22 PACKED RBC LEUKORED+BB.LAB.BRZ ordered. EDMS EDMS 14:30 14:24 ABO/RH typing ordered. EDMS EDMS 14:30 14:24 Antibody Screen ordered. EDMS EDMS 14:37 14:37 RETIC COUNT+H.LAB.BRZ ordered. EDMS EDMS 14:37 14:37 VITAMIN B12+C.LAB.BRZ ordered. EDMS EDMS 14:37 14:37 TRANSFERRIN SAT/IRON BINDING+C.LAB.BRZ ordered. EDMS EDMS 14:37 14:37 FERRITIN+C.LAB.BRZ ordered. EDMS EDMS 14:37 14:37 FERRITIN+C.LAB.BRZ ordered. EDMS EDMS 22:18 19:03 Misc. Order ordered. manuel tb4
--- NOTE | 2025-04-02 16:09 | ER ---
Nurse's Notes [facility] Name: Jaquelin Kohli Age: 74 yrs Sex: Female : 1950 Arrival Date: 04/02/2025 Time: 13:35 Bed 13 Private MD: Diagnosis: Anemia, unspecified;Chronic kidney disease, unspecified;Anemia in chronic kidney disease Presentation: 04/02 13:48 Chief complaint: Patient states: Had labs drawn yesterday, was told to come to ED for ll1 low HGB. States she has been weak and fatigued. Coronavirus screen: Client denies travel out of the [place] in the last 14 days. At this time, the client does not indicate any symptoms associated with coronavirus-19. Ebola Screen: Patient denies travel to an Ebola-affected area in the 21 days before illness onset. Initial Sepsis Screen: Does the patient meet any 2 criteria? No. Patient's initial sepsis screen is negative. Does the patient have a suspected source of infection? No. Patient's initial sepsis screen is negative. Risk Assessment: Do you want to hurt yourself or someone else? Patient reports no desire to harm self or others. Onset of symptoms was April 01, 2025. 13:48 Method Of Arrival: Ambulatory ll1 13:48 Acuity: KALLI 2 ll1 Historical: - Allergies: 13:47 No Known Allergies; ll1 - PMHx: 13:41 diabetes mellitus; Hypertensive disorder; ll1 - PSHx: 13:41 Cholecystectomy; ll1 13:47 broken L femur, R shoulder broken; ll1 - Immunization history:: Adult Immunizations up to date. - Infectious Disease History:: Denies. - Social history:: Smoking status: Patient denies any tobacco usage or history of. Screenin:27 [facility] ED Fall Risk Assessment (Adult) History of falling in the last 3 months, tb4 including since admission Yes- single mechanical fall (1 pt) Confusion or Disorientation No (0 pts) Intoxicated or Sedated No (0 pts) Impaired Gait Yes (1 pt) Mobility Assist Device Used Yes (1 pt) Altered Elimination No (0 pt) Score/Fall Risk Level 3 or more points = High Risk Oriented to surroundings, Maintained a safe environment, Educated pt \T\ family on fall prevention, incl call for assistance when getting out of bed. Abuse screen: Denies threats or abuse. Denies injuries from another. Nutritional screening: No deficits noted. Tuberculosis screening: No symptoms or risk factors identified. Assessment: 16:10 Reassessment: D/C pending blood transfusion x 2 units. ph 20:00 Reassessment: Patient receiving second unit of PRBC. tb4 21:06 Reassessment: Patient remains stable, family at bedside. tb4 22:28 Reassessment: Patient denies pain at this time. General: Appears in no apparent tb4 distress. comfortable, Behavior is calm, cooperative. Pain: Denies pain. Neuro: No deficits noted. Level of Consciousness is awake, alert, obeys commands, Oriented to person, place, time, situation, Moves all extremities. Full function Weakness in bilateral leg(s) Patient uses a best to ambulate. Cardiovascular: Patient's skin is warm and dry. Respiratory: Airway is patent Respiratory effort is even, unlabored, Respiratory pattern is regular, symmetrical, Breath sounds are clear bilaterally. GI: No deficits noted. No signs and/or symptoms were reported involving the gastrointestinal system. : No deficits noted. No signs and/or symptoms were reported regarding the genitourinary system. EENT: No deficits noted. No signs and/or symptoms were reported regarding the EENT system. Derm: Skin is intact, is healthy with good turgor, Skin is dry, Skin is normal. Musculoskeletal: Circulation, motion, and sensation intact. Range of motion: limited in right hip. 04/03 00:00 Reassessment: Patient states feeling better. tb4 Vital Signs: 04/02 13:48 BP 199 / 70; Pulse 87; Resp 18; Temp 98.3; Pulse Ox 100% on R/A; Weight 65.77 kg; ll1 Height 5 ft. 0 in. ; Pain 2/10; 19:28 BP 204 / 72; Pulse 73; Resp 19; Temp 97.5(O); Pulse Ox 100% ; tb4 19:55 BP 204 / 76; Pulse 72; Resp 19; Temp 97.5(O); Pulse Ox 100% on R/A; Pain 4/10; tb4 20:00 BP 199 / 82; Pulse 77; Resp 21; Temp 97.5(O); Pulse Ox 100% on R/A; tb4 20:05 BP 199 / 82; Pulse 73; Resp 17; Temp 97.4; Pulse Ox 100% on R/A; tb4 20:10 BP 197 / 68; Pulse 75; Resp 18; Pulse Ox 100% on R/A; tb4 21:00 BP 181 / 58; Pulse 73; Resp 20; Temp 97.5(O); Pulse Ox 100% on R/A; tb4 22:00 BP 176 / 57; Pulse 73; Resp 20; Temp 97.3(O); Pulse Ox 100% on R/A; tb4 22:30 BP 174 / 53; Pulse 69; Resp 18; Temp 97.4(O); Pulse Ox 100% on R/A; Pain 0/10; tb4 23:06 BP 163 / 58; Pulse 70; Resp 19; Temp 97.5(O); Pulse Ox 100% on R/A; tb4 23:30 BP 183 / 56; Pulse 70; Resp 20; Temp 97.4(O); Pulse Ox 100% ; tb4 04/03 00:00 BP 176 / 57; Pulse 72; Resp 18; Temp 97.4(O); Pulse Ox 100% ; Pain 0/10; tb4 04/02 13:48 Body Mass Index 28.32 (65.77 kg, 152.4 cm) ll1 04/02 13:48 Pain Scale: Adult ll1 19:55 Pain Scale: Adult tb4 22:30 Pain Scale: Adult tb4 04/03 00:00 Pain Scale: Adult tb4 ED Course: 04/02 13:39 Patient arrived in ED. im 13:39 Saeed Abdul MD is Attending Physician. manuel 13:41 Arm band placed on Patient placed in an exam room, on a stretcher. ll1 13:44 Dorene Schuler, AMBIKA is Primary Nurse. cc6 13:50 Triage completed. ll1 14:08 Basic Metabolic Panel Sent. cc6 14:08 CBC with Diff Sent. cc6 14:08 LFT's Sent. cc6 14:08 Magnesium Sent. cc6 14:08 NT PRO-BNP Sent. cc6 14:08 PT-INR Sent. cc6 14:08 Troponin HS Sent. cc6 14:08 Lipase Sent. cc6 14:08 Type And Screen Sent. cc6 14:27 EKG done, by biomedical electronics technician. reviewed by Saeed Abdul MD. ts3 14:48 XRAY Chest (1 view) In Process Unspecified. EDMS 15:39 Iron Level Sent. cc6 15:39 TIBC Sent. cc6 15:39 B12 Sent. cc6 15:39 LAB Add On Sent. cc6 16:09 Arelis Delgado MD is Referral Physician. [facility] 22:27 Patient has correct armband on for positive identification. Bed in low position. Call tb4 light in reach. Adult w/ patient. Client placed on continuous cardiac and pulse oximetry monitoring. NIBP monitoring applied. monitor technician on. Door closed. Lights dimmed. Warm blanket given. 22:27 No provider procedures requiring assistance completed. Initial lab(s) drawn, by ED tb4 staff. 04/03 00:00 IV discontinued, intact, bleeding controlled, No redness/swelling at site. Pressure tb4 dressing applied. 00:37 Provided Education on: Take medications as prescribed and follow up with primary care.. tb4 Administered Medications: 04/02 14:18 Drug: NS 0.9% IV 500 ml 500 ml IV at 1 bolus once; to be given as a bolus over 30 cc6 minutes Volume: 500 ml; Route: IV; Rate: 1 bolus; Site: left antecubital; 14:18 Drug: Pantoprazole IVP 40 mg IVP once Route: IVP; Site: left antecubital; cc6 14:32 Drug: Pantoprazole IVP 40 mg IVP once Route: IVP; Site: left antecubital; cc6 20:08 Drug: Lisinopril PO 20 mg PO once Route: PO; tb4 21:32 Follow up: Response: No adverse reaction tb4 21:32 Drug: Labetalol IV 10 mg IV at bolus once over 2 mins; For SBP greater than 140. Hold tb4 for HR less than 60, notify provider. Route: IV; Rate: bolus; Infused Over: 2 mins; Site: left antecubital; 22:17 Follow up: Response: No adverse reaction; Blood pressure is lowered; IV Status: tb4 Completed infusion Medication: 22:28 VIS not applicable for this client. tb4 23:30 Blood products: PRBCs X 2 units given. See transfusion record. tb4 Outcome: 16:09 Discharge ordered by . [facility] 04/03 00:00 Discharged to home ambulatory, tb4 Condition: stable Discharge instructions given to patient, Instructed on discharge instructions, follow up and referral plans. Demonstrated understanding of instructions, follow-up care, medications, Prescriptions given X 2, 00:38 Patient left the ED. tb4 Signatures: Dispatcher [employer] EDSaeed Joyner MD MD cha Hall, Patricia, RN RN earl Hsieh, Sona RN RN ll1 Yarely Ann Cassandra RN RN cc6 Teresita Francois RN RN tb4 Rosalba Mohr ts3 Corrections: (The following items were deleted from the chart) 04/02 23:06 22:30 BP 163 / 58; Pulse 70bpm; Resp 19bpm; Pulse Ox 100% RA; Temp 97.5F Oral; Pain tb4 0/10, Adult; tb4
[2025-04-02] MEDS ORDERED: NA CHLORIDE 0.9% 250 ML ONE ×2 (16:30→19:21)
[2025-04-02 16:52] LABS: Sqamous Epithelial <5 /HPF (None Seen); Urine Culture Reflex Order NOT NEEDED; Urine Microscopic Reflex YN ORDER UMIC; Urine WBC Clump Rare /HPF (None Seen); Urine Yeast (Budding) Trace /HPF (None Seen)
[2025-04-02] MEDS ORDERED: LABETALOL 20 MG/4ML SYRINGE IV ONE (20:59)
[2025-04-03 02:19] VITALS: O2SAT 100
[2025-04-03 02:44] VITALS: TEMP 97.4
[2025-04-03 02:46] VITALS: BP 176/57
== END 2025-04-03 00:38 | disposition home or self-care (01) ==
LOC: ER 13:35
DX: E11.22 Type 2 diabetes mellitus with diabetic chronic kidney disease (principal); I12.9 Hypertensive chronic kidney disease with stage 1 through stage 4 chronic kidney disease, or unspecified chronic kidney disease; N18.9 Chronic kidney disease, unspecified; D63.1 Anemia in chronic kidney disease
CPT/HCPCS: 96365; 93005; 85025; 81001; 80048; 36415; 86900; 83735; 86850; 85610; 85044; 86901; 80076; 86920 ×2; 84484; 82728; 82607; 83690; 83540; 83880; 84466; 71045; 36430; 96375; 99285; J2470 ×2; P9016 ×2; J7050; J7040